=== PATIENT | female | born 1950 | race Caucasian/White ===

== ENCOUNTER 2016-06-09 10:50 | Day surgery (SDC) | payer MEDICARE ==
--- NOTE | ~2016-06-09 | EGD ---
EGD REPORT [facility] [address] [place] 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 Estimated blood loss: None. Procedure: Pre-Anesthesia Assessment: - ASA Grade Assessment: III - A patient with severe systemic disease. After obtaining informed consent, the endoscope was passed under direct vision. Throughout the procedure, the patient's blood pressure, pulse, and oxygen saturations were monitored continuously. The Endoscope was introduced through the mouth, and advanced to the second part of duodenum. The GIF [id number] was introduced through the mouth, and advanced to the second part of duodenum. Findings: Endoscopic Finding : The examined esophagus was endoscopically normal. Patchy moderate inflammation characterized by erythema was found in the gastric antrum. Biopsies were taken with a cold forceps for histology. Verification of patient identification for the specimen was done. Estimated blood loss was minimal. The exam of the stomach was otherwise normal. The cardia and gastric fundus were normal on retroflexion. The examined duodenum was endoscopically normal. Endosonographic Finding : There was no sign of significant endosonographic abnormality in the entire pancreas. The pancreas was well visualized, no pathologic lymphadenopathy, no masses, no calcifications, the pancreatic duct was well visualized from ampulla to tail, the pancreatic duct was regular in contour. The pancreatic duct had a normal endosonographic appearance in the pancreatic head. The pancreatic duct measured up to 3 mm in diameter. There was no sign of significant endosonographic abnormality in the common bile duct. No stones were identified. No lymphadenopathy seen. There was no sign of significant endosonographic abnormality in the EGD REPORT [place] [id number] [place]. [address] NAME: NA ELIAS : [birth year] [place] [facility] [place] [id number] AGE: 65 ADM/REG DATE : 06/09/16 MR#: [id number] REPORT SERV DATE: 06/09/16 DICTATED BY: EMEKA MCCULLOUGH DATE: 06/09/16 REPORT STATUS : Draft TRANSCRIBED BY: [email or web address] DATE: 06/09/16 examined duodenum. Endosonographic images of the stomach were unremarkable. There was no sign of significant endosonographic abnormality in the esophagus. Impression: - Normal esophagus. - Gastritis. Biopsied. - Normal examined duodenum. - There was no sign of significant pathology in the entire pancreas. - The pancreatic duct had a normal endosonographic appearance in the pancreatic head. The pancreatic duct measured up to 3 mm in diameter. - There was no sign of significant pathology in the common bile duct. - There was no sign of significant pathology in the examined duodenum. - Endosonographic images of the stomach were unremarkable. - There was no sign of significant pathology in the esophagus. Recommendation: - Return to previous diet. - Continue present medications. - Check liver enzymes (AST, ALT, alkaline phosphatase, bilirubin) today. Procedure Code(s): --- Professional --- 45106, Esophagogastroduodenoscopy, flexible, transoral; with endoscopic ultrasound examination, including the esophagus, stomach, and either the duodenum or a surgically altered stomach where the jejunum is examined distal to the anastomosis Diagnosis Code(s): --- Professional --- K29.70, Gastritis, unspecified, without bleeding K83.1, Obstruction of bile duct CPT copyright 2013 [employer]. All rights reserved. The codes documented in this report are preliminary and upon auditing coder review may be revised to meet current compliance requirements. EMEKA MCCULLOUGH, 06/09/2016 1:00 PM EGD REPORT [facility] [address] [address] NAME: NA ELIAS : [birth year] STATUS : [place] [facility] [place]#: [id number] AGE: 65 ADM/REG DATE : 06/09/16 MR#: [id number] REPORT SERV DATE: 06/09/16 DICTATED BY: EMEKA MCCULLOUGH DATE: 06/09/16 REPORT STATUS : Draft TRANSCRIBED BY: [email or web address] DATE: 06/09/16 Number of Addenda: 0 Note Initiated On: 06/09/2016 12:31 PM Scope Withdrawal Time 0 hours 0 minutes 0 seconds [address] [address]
[~2016-06-09 10:50] MED LIST: APRES25 PO; COZAAR100 MG PO; CYMBALTA60 PO; GLUCOTRO10 PO; LEVOTHYROXIN25 MCG PO; LIOR10 PO; MOBIC7.5 PO; MSCONT15 PO; NEUR300 PO; NORCO1 TAB PO; PAXIL40 MG PO; PR25 PO; PROVHFA INH; REMERON45 MG PO; TESS PO; TRAZ100 PO; VIST25 PO; X25 PO
[2016-06-09 13:58] LABS: ALBUMIN 3.6 G/DL (3.5-5.0); TOTAL BILIRUBIN 0.3 MG/DL (0-1.2); TOTAL PROTEIN 6.5 G/DL (6.0-8.5)
[2016-06-09 14:00] LABS: DIRECT BILIRUBIN 0.1 MG/DL (0.0-0.4); INDIRECT BILIRUBIN(NOT ORDER) 0.2 MG/DL (0.1-0.9)
== END 2016-06-09 23:59 | disposition home or self-care (01) ==
LOC: DMU 10:50
PROVIDERS: Internal Medicine Gastroenterology
PROC: 0DB68ZX Excision of Stomach, Via Natural or Artificial Opening Endoscopic, Diagnostic (ICD-10-PCS; 2016-06-09)
PROC: 0FBG4ZX Excision of Pancreas, Percutaneous Endoscopic Approach, Diagnostic (ICD-10-PCS; principal; 2016-06-09 12:00)
DX: K29.60 Other gastritis without bleeding (principal); I10 Essential (primary) hypertension; I25.10 Atherosclerotic heart disease of native coronary artery without angina pectoris; I73.9 Peripheral vascular disease, unspecified; G47.33 Obstructive sleep apnea (adult) (pediatric); E11.9 Type 2 diabetes mellitus without complications; E03.9 Hypothyroidism, unspecified; K20.9 Esophagitis, unspecified; G25.81 Restless legs syndrome; F17.210 Nicotine dependence, cigarettes, uncomplicated; R25.1 Tremor, unspecified; Z88.0 Allergy status to penicillin; Z88.2 Allergy status to sulfonamides; Z88.8 Allergy status to other drugs, medicaments and biological substances; Z91.041 Radiographic dye allergy status; Z91.048 Other nonmedicinal substance allergy status; Z90.710 Acquired absence of both cervix and uterus; Z90.89 Acquired absence of other organs; Z41.1 Encounter for cosmetic surgery; Z98.890 Other specified postprocedural states; Z97.2 Presence of dental prosthetic device (complete) (partial); Z95.5 Presence of coronary angioplasty implant and graft; Z79.899 Other long term (current) drug therapy; Z79.891 Long term (current) use of opiate analgesic
CPT/HCPCS: 80076; 82962; 88305